=== PATIENT | female | born 1965 | race Caucasian/White ===

== ENCOUNTER → 2023-08-09 10:46 | Outpatient (REF) | payer OTHER, SELFPAY | LOC: WDC 10:46 | PROVIDERS: ATTENDING PHYSICIAN Obstetrics & Gynecology Gynecology; FAMILY PHYSICIAN Family Medicine | DX: Z01.419 Encounter for gynecological examination (general) (routine) without abnormal findings (principal); Z12.31 Encounter for screening mammogram for malignant neoplasm of breast | CPT/HCPCS: 77063; 77067 ==

== ENCOUNTER 2023-11-08 07:54 | Emergency (ER) | payer OTHER, SELFPAY ==
[2023-11-08 07:58] VITALS: BP 116/70
--- NOTE | 2023-11-08 08:34 | ED.GENMED ---
History of Present Illness
General
Chief Complaint: Facial Problem
Source: patient
Exam Limitations: none
Time Seen by Provider: 11/08/23 08:13
Nursing documentation reviewed up to this point in time: agreed with
History of Present Illness
History of Present Illness:
Patient presents to ED secondary to worsening rash noted initially on her left face, upon waking up 2 days ago. Since then, rash has expanded to different areas of her face, and has become itchy. Denies fever or chills. Denies trauma. Patient
does not recall any insect or bug bites. Denies previous history of skin infection. 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 Denies recent illness. Denies recent change in
medications or diet.
Past History
Past History
ED Past Medical History: None
Social History
Tobacco: Non-smoker
Alcohol: None
Drug: None
Living: with family
Review of Systems
Review of Systems
Allergies reviewed?: Yes
All Other Systems: ROS reviewed and negative except as documented in HPI and ROS
Constitutional: Reports no symptoms
ABD/GI: Reports no symptoms
Musculoskeletal: Reports no symptoms
Skin: Reports itching and rash
Neurological: Reports no symptoms
Phy Exam
Physical Exam
Physical Exam:
Physical Exam
General: no apparent distress, not acutely ill. afebrile
Head: nc/at. eomi
Neck: supple. no meningeal signs.
Neuro: alert and oriented. no focal neurological deficits
Skin: erythema noted with minimal oozing noted over left cheek without tenderness, as well as left jawline and forehead.
Psychiatric: well kept. interactive and cooperative
Extremities: no edema. no calf tenderness.
Course
Orders/Labs/Results
Orders:
Orders
11/08/23 08:33
Doxycycline [Vibramycin] 100 mg PO NOW STA
11/08/23 08:53
Lyme Progressive Urgent
Vital Signs
Initial and Last Documented VS:
Initial Vital Signs
Temp Pulse Resp BP Pulse Ox
98.1 F 80 20 116/70 97
11/08/23 07:58 11/08/23 07:58 11/08/23 07:58 11/08/23 07:58 11/08/23 07:58
Last Documented Vital Signs
Temp Pulse Resp BP Pulse Ox
98.1 F 88 18 111/71 98
11/08/23 07:58 11/08/23 09:18 11/08/23 09:18 11/08/23 09:18 11/08/23 09:18
MDM/Problems Addressed
MDM/Problems Addressed:
History and exam consistent with likely spreading superficial skin infection, localized to left side of patient's face. Patient however is afebrile, hemodynamically stable, and nontoxic-appearing. Patient will be started empiric doxycycline for
potential MRSA infection.
Lyme titer pending. Strongly recommended that patient contact her primary care physician for reevaluation this week. Avoidance of sun exposure, while taking doxycycline, discussed with patient.
*Critical Care Note
Total Time (30-74mins, 75-104mins- exclusive of procedures): Not Applicable
ED Attending Note
-
Portions of this chart may have been created with voice recognition software.� Occasional wrong word or��sound alike� substitutions may have occurred due to the inherent limitations of voice recognition software.
Discharge Plan
Departure
Patient Disposition: Home (Routine Discharge)
Date of Disposition: 11/08/23
Time of Disposition: 08:38
Patient with high blood pressure during this ER visit?: No
Discharge Problem:
Cellulitis
Instructions: Cellulitis (Skin Infection), Adult (DC)
Prescriptions:
New
doxycycline hyclate 100 mg tablet
100 mg PO BID Qty: 13 0RF
No Action
ibuprofen [Advil Liqui-Gel] 200 MG capsule
600 mg PO Q8HPRN PRN (Reason: body aches and H/A)
Vitamin B-12
1 tab PO .EVERY OTHER DAY
Vitamin D3 (cholecalciferol):
1 tab PO DAILY
prednisone 20 MG tablet
20 mg PO TID Qty: 20 0RF
Activity Restrictions/Additional Instructions:
As discussed, please follow-up with your primary care physician for reevaluation this week. Your prescription has been sent electronically to [facility] pharmacy in [place].
Interventions
Interventions:
*Risk Screen - Suicide Last Done: 11/08/23 09:22
*General Assessment Last Done: 11/08/23 09:18
*Neglect/Abuse Screening Last Done: 11/08/23 09:18
ED- Fall Risk Assessment Last Done: 11/08/23 09:24
*ED COVID-19 Vaccine History Last Done: 11/08/23 09:18
*Nursing Disposition Last Done: 11/08/23 09:24
ED- Neurological Assessment Last Done: 11/08/23 09:22
ED-Skin Assessment Last Done: 11/08/23 09:22
Discharge Date and Time
Discharge Date/Time: 11/08/23 09:25
Print Language: [place]
[2023-11-08] MEDS: VIBRAMYCIN 100 MG PO (09:02)
[2023-11-08 09:18] VITALS: BP 111/71
[2023-11-11 13:55] LABS: Lyme Antibody Screen, EIA Negative (Negative)
== END 2023-11-08 09:25 | disposition home or self-care (01) ==
LOC: EMR 07:54
PROVIDERS: EMERGENCY PHYSICIAN Emergency Medicine; FAMILY PHYSICIAN Family Medicine
DX: L03.211 Cellulitis of face (principal)
CPT/HCPCS: 99283; 86618

== ENCOUNTER → 2024-08-10 10:53 | Outpatient (REF) | payer OTHER, SELFPAY | LOC: WDC 10:53 | PROVIDERS: ATTENDING PHYSICIAN Obstetrics & Gynecology Gynecology; FAMILY PHYSICIAN Family Medicine | DX: Z12.31 Encounter for screening mammogram for malignant neoplasm of breast (principal) | CPT/HCPCS: 77063; 77067 ==

== ENCOUNTER → 2024-10-20 13:11 | Outpatient (REF) | payer OTHER, SELFPAY | LOC: RAD 13:11 | PROVIDERS: ATTENDING PHYSICIAN Internal Medicine; FAMILY PHYSICIAN Family Medicine | DX: M81.0 Age-related osteoporosis without current pathological fracture (principal) | CPT/HCPCS: 77080 ==